=== PATIENT | female | born 1940 | race Caucasian/White ===

== ENCOUNTER 2022-12-29 11:19 | Emergency (ER) | payer MEDICARE, SELFPAY ==
--- NOTE | ~2022-12-29 | XR_ITS ---
Clinical Indication: Dizziness PA and lateral views of the chest: Comparison: None Findings: The lungs are clear, without evidence of focal consolidation or pleural effusion. Cardiome diastinal silhouette is within normal limits, status cardiac valve replacement with pacemaker device. Bones and soft tissues are unremarkable. Impression: Clear lungs. Reviewed, dictated and finalized at location . [facility] Impression: Clear lungs.
[2022-12-29 11:36] VITALS: BP 106/57; PULSE 79; RESP 20; TEMP 36.9; O2SAT 100
--- NOTE | 2022-12-29 11:41 | ED.GENADULT ---
HPI - General Adult General Chief complaint: Upper Respiratory Infection Stated complaint: Congestion/Cough Source: patient and RN notes reviewed History of Present Illness HPI narrative: 82 yo F presents to urgent care with complaints of cough, SOB, congestion, and dizziness x 2 weeks. Pt states she started out having clear drainage from her nose but it is now thick and yellow. Pt reports right sided ear pain and chills. Denies any chest pain, falls, fevers, or dysuria. 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 Some parts of this dictation were generated by voice recognition software and may contain typographical and/or grammatical inaccuracies. Related Data Home Medications Medication Instructions Recorded Confirmed amiodarone 400 mg tablet mg 12/29/22 aspirin 81 mg tablet,delayed mg 12/29/22 release atorvastatin 20 mg tablet mg 12/29/22 digoxin 62.5 mcg (0.0625 mg) tablet 12/29/22 furosemide 40 mg tablet mg 12/29/22 levothyroxine 50 mcg tablet mcg 12/29/22 metoprolol tartrate 25 mg tablet mg 12/29/22 rivaroxaban 15 mg tablet (Xarelto) mg 12/29/22 spironolactone 25 mg tablet mg 12/29/22 Allergies Allergy/AdvReac Type Severity Reaction Status Date / Time No Known Allergies Allergy Verified 12/29/22 11:38 Review of Systems Review of Systems: CONSTITUTIONAL: REports chills. EYES: Denies visual changes, redness, or discharge. ENT: Reports right sided otalgia and congestion CARDIOVASCULAR: Denies chest pain, palpitations, or edema. RESPIRATORY: Reports cough or dyspnea. GASTROINTESTINAL: Denies abdominal pain, nausea, vomiting, or diarrhea. GENITOURINARY: Denies dysuria or hematuria. SKIN: Denies rash or itching. MUSCULOSKELETAL: Denies back pain, joint pain, or myalgia. NEUROLOGIC: Dizziness PMFSH Comments At the time of my signature, I reviewed and agree with the nursing past medical, surgical, social, and family history. There is no relevant family history pertinent to the patient complaint. Exam Narrative: GENERAL: This is a well-nourished, well-developed patient, in no apparent distress. HEAD: normocephalic, atraumatic. EYES: PERRL. Sclera clear/white. Vision is grossly intact. EARS: External ears normal, auditory canals clear and without drainage, TMs normal without perforation. Hearing grossly intact. NOSE: External nose normal with no obvious nasal discharge, nares without redness, no rhinorrhea. THROAT: Mucous membranes moist, posterior pharynx clear. NECK: Neck supple, non-tender without lymphadenopathy, masses or thyromegaly. CARDIOVASCULAR: Regular rate and rhythm without murmurs, gallops, or rubs. RESPIRATORY: Clear to auscultation. Breath sounds equal bilaterally. No wheezes, rales, or rhonchi. GASTROINTESTINAL: Abdomen soft, non-tender, nondistended. Bowel sounds are active. No hepato-splenomegaly, or palpable masses. No guarding. SKIN: warm, intact with no suspicious lesions or rash, good texture and turgor. NEURO: awake, alert, and oriented to person, place and time. There were no obvious focal neurologic abnormalities. Course Course Level of Care: Express Care Visit Vital Signs Vital signs: Vital Signs Temperature 98.5 F 12/29/22 11:36 Pulse Rate 79 12/29/22 11:36 Respiratory Rate 20 12/29/22 11:36 Blood Pressure 106/57 L 12/29/22 11:36 Pulse Oximetry 100 12/29/22 11:36 Oxygen Delivery Room Air 12/29/22 11:36 Temperature 98.5 F 12/29/22 11:36 Pulse Rate 79 12/29/22 11:36 Respiratory Rate 20 12/29/22 11:36 Blood Pressure 106/57 L 12/29/22 11:36 Pulse Oximetry 100 12/29/22 11:36 Oxygen Delivery Room Air 12/29/22 11:36 Reviewed. Transfer Transfered to: [facility] Transportation: Other (private vehicle) Transfer rationale: Hx of CABG in August, has been dizzy and short of breath x 2 weeks. Pt would benefit from blood work and cardiac workup. Might need IVF for possible dehydration. Accepting physician: Dr. Armstrong Tr
== END 2022-12-29 12:43 | disposition short-term general hospital (02) ==
PROVIDERS: Emergency Provider Nurse Practitioner Family
DX: R42 Dizziness and giddiness (principal); R82.90 Unspecified abnormal findings in urine; E78.00 Pure hypercholesterolemia, unspecified; I10 Essential (primary) hypertension; E03.9 Hypothyroidism, unspecified; Z95.1 Presence of aortocoronary bypass graft
CPT/HCPCS: 71046; 81003; 87086; 87088; 99213; G0463

== ENCOUNTER 2024-06-24 11:09 | Emergency (ER) | payer MEDICARE, OTHER, SELFPAY ==
--- NOTE | ~2024-06-24 | XR_ITS ---
EXAMINATION: XR chest 2V DATE: 06/24/2024 11:49 INDICATION: Cough. Shortness of breath. TECHNIQUE: Frontal and lateral views of the chest were obtained. COMPARISON: Chest 2 views 12/29/2022 FINDINGS: There is no pneumonia, pleural effusion, or pneumothorax. The heart size is normal. There a re changes of aortic valve replacement. There is a closure device at left atrial appendage. There is a left chest wall pacer with leads in the right atrium and right ventricle. There are surgical clips in the abdomen. IMPRESSION: 1. No acute cardiopulmonary disease. Reviewed, dictated and finalized at location A.
--- NOTE | 2024-06-24 11:16 | ED.GENADULT ---
HPI - General Adult General Chief complaint: Upper Respiratory Infection Stated complaint: Shortness of Breath Time Seen by Provider: 06/24/24 11:19 Source: patient, RN notes reviewed and old records reviewed Mode of arrival: ambulatory Limitations: no limitations History of Present Illness HPI narrative: 83-year-old female to Express Care for complaint of shortness of breath, fatigue, head congestion for 10 days. Patient reports a temp 101? two days ago. Patient has attempted to treat at home with Tylenol. Patient denies wheezing, headache, allergies, difficulty swallowing, throat pain, and ear pain. 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 Cardiology requested the patient go to an urgent care and have a chest x-ray completed so they could review results and discuss on . Patient reports that her next appointment with her primary care provider is July 26. Patient reports history of CHF, heart attack, stroke. Patient denies chest pain, abdominal pain, nausea, vomiting, sore throat, allergies. Patient able to tolerate fluids by mouth. Respirations even and nonlabored. Patient able to speak in short sentences without difficulty. Patient ambulated to and from x-ray with slow steady gait and use of cane. Patient in no acute distress. Related Data Home Medications Medication Instructions Recorded Confirmed atorvastatin 20 mg tablet 20 mg PO DAILY 12/29/22 06/24/24 furosemide 40 mg tablet 40 mg PO DAILY 12/29/22 06/24/24 levothyroxine 50 mcg tablet 50 mcg PO DAILY 12/29/22 06/24/24 rivaroxaban 15 mg tablet (Xarelto) 15 mg PO DAILY 12/29/22 06/24/24 spironolactone 25 mg tablet 25 mg PO DAILY 12/29/22 06/24/24 albuterol sulfate 90 mcg/actuation 2 inh inhalation Q4-6H PRN sob 06/24/24 06/24/24 breath activated powder inhaler,sensor amiodarone 100 mg tablet 100 mg PO DAILY 06/24/24 06/24/24 ascorbic acid (vitamin C) 500 mg 250 mg PO DAILY 06/24/24 06/24/24 tablet calcium carbonate (Antacid See Rx Instructions .Route .COMPLEX 06/24/24 06/24/24 (calcium carbonate)) cholecalciferol (vitamin D3) 125 125 mcg PO DAILY 06/24/24 06/24/24 mcg (5,000 unit) tablet (Vitamin D3) diltiazem HCl 360 mg 360 mg PO DAILY 06/24/24 06/24/24 capsule,extended release 24 hr meclizine 25 mg tablet 25 mg PO TID PRN Dizziness 06/24/24 06/24/24 metoprolol tartrate 25 mg tablet 12.5 mg PO BID 06/24/24 06/24/24 nitroglycerin 0.4 mg sublingual 0.4 mg sublingual Q5-15M PRN Chest 06/24/24 06/24/24 tablet Pain pantoprazole 40 mg tablet,delayed 40 mg PO QAM 06/24/24 06/24/24 release vitamin B comp and C no.3 15 mg-10 1 cap PO DAILY 06/24/24 06/24/24 mg-50 mg-5 mg-300 mg capsule (B Complex Plus Vitamin C) Allergies Allergy/AdvReac Type Severity Reaction Status Date / Time No Known Allergies Allergy Verified 06/24/24 11:18 Review of Systems Review of Systems: All systems reviewed & are unremarkable except as noted in HPI and below Constitutional: Constitutional: Reports as per HPI, Denies body ache(s), Denies chills, Reports fatigue and Reports fever(s) Eyes: Eyes: Reports no additional eye complaints ENT: Reports as per HPI, Denies dysphagia, Reports otalgia ( bilateral fullness), Denies headache(s), Denies hoarseness, Reports nasal congestion, Reports sinus pressure and Denies sore throat Cardiovascular: Cardiovascular: Reports no additional cardiovascular complaints, Denies chest pain and Denies dyspnea Respiratory: Respiratory: Reports as per HPI, Denies chest congestion, Denies excessive phlegm production, Reports dyspnea on exertion and Denies wheezing Musculoskeletal: Musculoskeletal: Reports no additional musculoskeletal complaints Neurologic: Reports system reviewed and no additional complaints, except as documented Psychiatric: Psychiatric: Reports no additional psychiatric complaints PMFSH Comments At the time of my signature, I
[2024-06-24 11:18] VITALS: BP 124/60; PULSE 80; RESP 20; TEMP 36.8; O2SAT 100
[2024-06-24 11:59] VITALS: BP 124/60; PULSE 80; RESP 20; TEMP 36.8; O2SAT 100
== END 2024-06-24 12:15 | disposition home or self-care (01) ==
PROVIDERS: Emergency Provider Nurse Practitioner Family; PCP Family Medicine
DX: J06.9 Acute upper respiratory infection, unspecified (principal); I50.9 Heart failure, unspecified; I25.2 Old myocardial infarction; I25.10 Atherosclerotic heart disease of native coronary artery without angina pectoris; M19.90 Unspecified osteoarthritis, unspecified site; E03.9 Hypothyroidism, unspecified; Z95.1 Presence of aortocoronary bypass graft; Z86.73 Personal history of transient ischemic attack (TIA), and cerebral infarction without residual deficits
CPT/HCPCS: 71046; 99213; G0463